=== PATIENT | male | born 1950 | race Caucasian/White ===

== ENCOUNTER 2024-09-10 09:45 | Emergency (ER) | payer MEDICARE, OTHER, SELFPAY ==
[2024-09-10] VITALS (8 sets, daily range): BP systolic 114–158; BP diastolic 64–104; PULSE 71–91; RESP 14–18; TEMP 36.9–37.2; O2SAT 95–99; BMI 31.4
--- NOTE | 2024-09-10 10:26 | EKG12_ITS ---
Test Reason : SOB Blood Pressure : */* mmHG Vent. Rate : 74 BPM Atrial Rate : 74 BPM P-R Int : 144 ms QRS Dur : 126 ms QT Int : 416 ms P-R-T Axes : 44 -8 -2 degrees QTcB Int : 461 ms Normal sinus rhythm Right bundle branch block Possible Inferior infarct , age undetermined Abnormal ECG Confirmed by EMI URIAS, IAIN ([id number]), clinical editor TIP LARKIN ([id number]) on 09/11/2024 9:47:28 AM Referred By: DENY Confirmed By: IAIN MIDDLETON MD
--- NOTE | 2024-09-10 10:35 | CT_ITS ---
PROCEDURE: CTA CHEST W/WO CONTRAST 09/10/2024 REASON FOR EXAM: SOB, RECENT SURGERY TECHNIQUE: CTA CHEST W/WO CONTRAST Multiplanar Sagittal and Coronal images were obtained. CONTRAST: Isovue 370 VOLUME: 100 mL One or more dose reduction techniques were used (e.g., Automated exposure control, adjustment of the mA and/or kV according to patient size, use of iterative reconstruction technique). RADIATION DOSE SUMMARY: CTDlvol: 34.76 mGy DLP: 569.94 mGycm COMPARISON: None # of known CTs in the past 12 months: 0 # of known Cardiac Nuclear Medicine Studies in the past 12 months: 0 FINDINGS: No demonstrated filling defects within the pulmonary arteries to suspect PE. The thoracic aorta tapers normally without aneurysm or dissection. Lung windows show chronic interstitial changes in both lung forrest with chronic bronchitis and opacifications in the left lung base a likely combination of pneumonitis and atelectasis. No demonstrated effusion. No suspicious noncalcified mass or nodule. Soft tissue windows show a normal-appearing thyroid gland. No suspicious axillary, mediastinal or perihilar adenopathy. There are calcified coronary vessels. Limited cuts through the upper abdomen show hiatal hernia, gallstones, and retained stool throughout the colon. Bony structures show degenerative change CT/CTA Chest W/WO Contrast IMPRESSION: No demonstrated PE, or thoracic aortic aneurysm or dissection Chronic interstitial changes in both lung forrest with chronic bronchitis, and o pacifications in the left lung base a likely combination of pneumonitis and atelectasis. No effusion. No suspicious adenopathy Degenerative bony changes Reading Location: [id number]
[2024-09-10] MEDS: 0.9% Normal Saline (1000mL) 1,000 ML 999 ML IV (10:39)
[2024-09-10 10:41] LABS: Hematocrit 45.2 % (40-54); Hemoglobin 16.4 g/dL (13.0-16.5); Immature Granulocytes Count 0.020 X10^3/uL (0.0-0.0); Mean Corp Hgb Conc 36.3 g/dL (32-36); Mean Corpuscular Volume 88.3 fL (80-94); Mean Platelet Vol. 11.0 fl (6.2-12.0); NRBC Flagged by Analyzer 0 % (0-5); Platelet Count 258 K/mm3 (150-450); RBC Distribution Width CV 12.1 % (11.6-14.6); RBC Distribution Width SD 39.5 fl (35.1-43.9); Red Blood Count 5.12 M/mm3 (4.6-6.2); White Blood Count 5.9 K/mm3 (4.4-11.0)
--- NOTE | 2024-09-10 10:42 | EX.ED.DYSGE1 ---
HPI History of Present Illness Chief Complaint: Shortness of Breath Narrative Narrative: Patient is a 73-year-old male with a past medical history of diabetes recent rotator cuff repair on Wednesday with chief complaint of shortness of breath. He states that if he tries to lay down he feels extremely short of breath. He states that he had some symptoms starting however Wednesday and Wednesday his symptoms significantly worsened prompting him to come here for further evaluation management. Patient denies history of blood clots. [facility] Medical History Diabetes Diabetic acetonemia Home Medications ?Medication ?Instructions ?Recorded ?Last Taken ?Type acetaminophen 500 mg capsule 500 mg PO Q6H PRN pain 09/10/24 09/09/24 History atorvastatin 10 mg tablet 10 mg PO DAILY 09/10/24 09/09/24 History budesonide-formoterol HFA 80 2 puff inhalation Q12H PRN 09/10/24 Unknown Rx mcg-4.5 mcg/actuation aerosol shortness of breath #10.2 grams inhaler (Symbicort) finasteride 5 mg tablet 5 mg PO DAILY 09/10/24 09/09/24 History oxycodone 5 mg tablet 5 - 10 mg PO Q6H PRN PRN pain 09/10/24 09/09/24 History Allergy/AdvReac Type Severity Reaction Status Date / Time No Known Allergies Allergy Verified 09/10/24 09:46 Surgical History H/O hernia repair Hx of shoulder surgery Social History Smoking Status: Never smoker ROS ROS ED ROS Narrative Constitutional: Denies any fevers, chills, headaches Eyes: Denies change in vision Cardiovascular: Denies any chest pain or palpitations Respiratory: Complains of shortness of breath as noted above denies coughing Abdomen: Denies abdominal pain nausea vomit diarrhea : Denies any urinary symptoms Neurological: Denies any numbness, weakness, tingling Skin: Denies any rashes or lesions EXAM Physical Exam Narrative Exam Narrative: General: Patient lying in bed resting comfortably did not appear to be in acute distress Head: Atraumatic, normocephalic Eyes: PERRL bilaterally, EOMI bilateral, no conjunctival injection noted Neck: Soft, supple, trachea midline Cardiovascular: Regular rate and rhythm Respiratory: Clear to auscultation bilaterally Abdomen: Soft, nondistended, nontender to palpation Musculoskeletal: Patient surgical incisions in his left shoulder appear to be healing well no concern for infection Extremities: Radial pulses +2/4 in the bilateral extremities, no pedal edema no exam Neurological: Patient following commands knew that he was at [facility] year is 2024 Skin: Warm, dry, intact no rashes or lesions noted surgical sites appear to be well-healing Const Vital Signs: 09/10/24 09:46 09/10/24 10:11 09/10/24 10:11 Temperature 98.9 F 98.9 F Temperature Source Oral Oral Pulse Rate 91 77 Respiratory Rate 18 18 Respiratory Effort Normal Non-Labored Respiratory Depth Normal Respiratory Pattern Tachypnea Blood Pressure 142/97 H 134/93 H Blood Pressure Mean 112 106 Pulse Ox 98 97 Oxygen Delivery Method Room Air Room Air Room Air 09/10/24 10:32 09/10/24 11:00 09/10/24 11:00 Temperature 98.9 F Temperature Source Oral Pulse Rate 75 76 Respiratory Rate 18 14 Respiratory Effort Respiratory Depth Respiratory Pattern Blood Pressure 151/98 H 142/84 H Blood Pressure Mean 115 103 Pulse Ox 97 97 Oxygen Delivery Method Room Air Room Air Room Air 09/10/24 12:00 09/10/24 13:00 09/10/24 14:00 Temperature 98.9 F 98.5 F Temperature Source Oral Oral Pulse Rate 78 81 71 Respiratory Rate 18 14 15 Respiratory Effort Respiratory Depth Respiratory Pattern Blood Pressure 158/64 H 114/104 H 133/92 H Blood Pressure Mean 95 107 105 Pulse Ox 98 98 96 Oxygen Delivery Method Room Air Room Air Room Air MDM MDM MDM Narrative Medical decision making narrative: Patient is a 73-year-old male who presented to the emergency department chief complaint shortness of breath. On the differential diagnose includes Melamin to ACS, pneumonia, pneumothorax, pulmonary embolism, CHF. Once the workup is obtained reviewed he will be reevaluated. Patient's CBC was reviewed showed no evidence leukocytosis white blood count normal at 5.9, hemoglobin 16.4, plate count of 258. Patient INR normal at 1.1, PT of 13.9. Patient sodium is 136, potassium normal at 4.3, creatinine was 0.72. Patient's troponin was 24, delta troponin of 26 and a 4-hour troponin of 27. Patient proBNP normal at 696. Patient EKG reviewed showed sinus rhythm with a rate of 74 bpm with evidence of right bundle branch block. Patient CTA of his chest reviewed and showed no evidence of PE he has chronic interstitial changes in both lung forrest with chronic bronchitis and opacifications in the left lung base likely a combination of pneumonitis and atelectasis no effusion. No suspicious adenopathy degenerative bony changes. Patient ambulated well here in the emergency department no hypoxia no tachycardia. Reached out to orthopedics on-call Dr. Stevens who performed his surgery as well and we discussed since he had pneumonitis on his CT scan we should avoid systemic steroids from a healing standpoint and he will be given inhaled steroid with Symbicort. He is advised to follow-up his doctor in outpatient setting return with worsening symptoms or concerns. He is agreeable this plan as well as family members at bedside all question concerns answered was discharged home in stable condition. Lab Data Labs: Laboratory Results - last 24 hr 09/10/24 09/10/24 09/10/24 10:05 13:09 14:33 WBC 5.9 RBC 5.12 Hgb 16.4 Hct 45.2 MCV 88.3 MCH 32.0 MCHC 36.3 H RDW Std Deviation 39.5 RDW Coeff of [place] 12.1 Plt Count 258 MPV 11.0 Immature Gran % (Auto) 0.300 Neut % (Auto) 66.1 Lymph % (Auto) 20.4 Delta % (Auto) 10.3 H Eos % (Auto) 2.7 Baso % (Auto) 0.2 Absolute Neuts (auto) 3.9 Absolute Lymphs (auto) 1.21 Nucleated RBC % 0 PT 13.9 INR 1.1 APTT 25.7 Sodium 136 Potassium 4.3 Chloride 101 Carbon Dioxide 20.1 L Anion Gap 15 BUN 16 Creatinine 0.72 Estim Creat Clear Calc 91.34 Est GFR (MDRD) Non-Af 96 BUN/Creatinine Ratio 21.8 H Glucose 180 H Calcium 9.8 Troponin T High Sens 24 H Troponin T Hi Sens 2 Hr 26 H Troponin T Hi Sens 4Hr 27 H NT pro BNP II 696 Radiography Diagnostic Testing: Clinical Impression(s) from Imaging Studies Chest CTA 09/10/24 10:35 IMPRESSION: No demonstrated PE, or thoracic aortic aneurysm or dissection Chronic interstitial changes in both lung forrest with chronic bronchitis, and opacifications in the left lung base a likely combination of pneumonitis and atelectasis. No effusion. No suspicious adenopathy Degenerative bony changes Reading Location: [facility] Discharge Plan Triage Chief Complaint: Shortness of Breath ED Provider: Luke Beltran Dx/Rx/DC Orders Clinical Impression: Shortness of breath, Pneumonitis, Status post complete repair of rotator cuff Prescriptions: New budesonide-formoterol [Symbicort] 80-4.5 mcg/actuation HFA aerosol inhaler 2 puff inhalation Q12H PRN (Reason: shortness of breath) Qty: 10.2 0RF No Action atorvastatin 10 mg tablet 10 mg PO DAILY finasteride 5 mg tablet 5 mg PO DAILY oxycodone 5 mg tablet 5 - 10 mg PO Q6H PRN PRN (Reason: pain) acetaminophen 500 mg capsule 500 mg PO Q6H PRN (Reason: pain) Primary Care Provider: Jewel Beatty NP Referrals: Jewel Beatty NP, [employer]GE-[employer] [Primary Care Provider] - Activity Restrictions/Additional Instructions: Follow-up your doctors in outpatient setting. Your blood work did not show any acute findings today and no evidence of blood clots in your lungs. Use inhaler that was sent to your pharmacy as prescribed. Return with worsening symptoms or any concerns. Have your primary care physician order UA outpatient stress test. Print Language: Samoan Disposition Disposition: Home, Self Care
[2024-09-10 10:52] LABS: Prothrombin Time (Protime)PT. 13.9 SECONDS (11.7-14.9)
[2024-09-10 10:53] LABS: Partial Thromboplast Time 25.7 Seconds (24.1-36.2)
[2024-09-10 10:59] LABS: Anion Gap 15 (5-15); BUN 16 mg/dL (4-19); BUN/Creat Ratio 21.8 RATIO (10-20); Calcium,Total 9.8 mg/dL (7.6-11.0); Carbon Dioxide 20.1 mmol/L (21.0-32.0); Chloride 101 mmol/L (98-108); Estimated Creatinine Clearance 91.34 ml/min (50-250); Glucose 180 mg/dL (70-99); Potassium 4.3 mmol/L (3.3-5.1); Pro- Brain NATRIURETIC PEPTIDE 696 pg/mL (<=900); Troponin T High Sensitivity 24 ng/L (<=22)
--- NOTE | 2024-09-10 11:02 | CM.ED ---
Social Work Date of referral: 09/10/24 Reason for referral: No Advanced Care Directives (ACD's) on file Referred by: Social Work Identification Patient provided consent for social work visit. Material Reclaimer requested a copy of patient's ACD's which patient agreed to bring in. Stefania Irwin, RECORD PRESS TENDER, LINER CHECKER
[2024-09-10 13:44] LABS: Troponin T High Sens 2 HR 26 ng/L (<=22)
[2024-09-10 15:00] LABS: Troponin T High Sens 4 HR 27 ng/L (<=22)
== END 2024-09-10 15:36 | disposition home or self-care (01) ==
PROVIDERS: Emergency Provider Emergency Medicine; PCP Nurse Practitioner Family; Visit Provider Emergency Medicine
DX: R06.02 Shortness of breath (principal); E11.9 Type 2 diabetes mellitus without complications; J95.4 Chemical pneumonitis due to anesthesia
CPT/HCPCS: 36415; 71275; 80048; 83880; 84484; 85025; 85610; 85730; 93005; 96360; 96361; 99284; Q9967; A4216